=== PATIENT | male | born 1980 | race Caucasian/White ===

== ENCOUNTER 2020-12-10 16:13 | Emergency (ER) | payer SELFPAY ==
[2020-12-10] MEDS ORDERED: BACTROBAN OINT22 GM EXT (17:34)
[2020-12-10] MEDS ORDERED: CEPHALEXIN500 MG PO (17:34)
== END 2020-12-10 18:00 | disposition home or self-care (01) ==
LOC: ER1 16:13
DX: S01.21XA Laceration without foreign body of nose, initial encounter (principal); S60.512A Abrasion of left hand, initial encounter; S60.511A Abrasion of right hand, initial encounter; V19.9XXA Pedal cyclist (driver) (passenger) injured in unspecified traffic accident, initial encounter; Y93.I9 Activity, other involving external motion
CPT/HCPCS: 12011; 90715; 96374; 96375; 99283; J2270; J2405